=== PATIENT | male | born 1955 | race American Indian/Alaskan Native ===

== ENCOUNTER 2022-08-04 12:01 | Emergency (ER) | payer BC ==
[2022-08-04] MEDS ORDERED: HYDROmorphone 1 MG/ML Syringe IVPUSH ONE ×2 (12:17→15:26)
[2022-08-04] MEDS ORDERED: Metoclopramide 10 MG/2 ML SDV IVPUSH ONE (12:18)
[2022-08-04] MEDS ORDERED: Dextrose 5%-Lactated Ringers 1,000 ML IV SCH (12:30)
[2022-08-04 15:04] LABS: CORONAVIRUS COVID-19 NAA NEGATIVE (NEGATIVE)
== END 2022-08-04 16:00 ==
LOC: JD.ED 12:01
DX: S72.142A Displaced intertrochanteric fracture of left femur, initial encounter for closed fracture (principal); F10.20 Alcohol dependence, uncomplicated; Z20.822 Contact with and (suspected) exposure to COVID-19; W01.0XXA Fall on same level from slipping, tripping and stumbling without subsequent striking against object, initial encounter
CPT/HCPCS: 0241U; 36415; 71045; 72170; 73552; 80053; 80307; 81001; 82550; 83735; 83880; 85025; 85610; 85730; 86140; 86850; 86900; 86901; 93005; 96361; 96374; 96375; 99284; J1170; J2765; J7121